=== PATIENT | female | born 1960 | race Native Hawaiian/Other Pacific Islander ===

== ENCOUNTER 2017-03-19 15:53 | Emergency (ER) | payer OTHER ==
[~2017-03-19] VITALS: Ht 160 cm; Wt 63.5 kg
--- NOTE | 2017-03-19 16:15 | NUR ---
PT IS SEEN AND EXAMINED BY MD. CHIEF C/O SHARP ABDOMENAL PAIN THATS RADIATING TO LOWER BACK. AWAKE, ALERT AND ORIENTEDX3.
[2017-03-19] MEDS ORDERED: ONDANSETRON 4 MG/2 ML VIAL IV ONE (16:45)
[2017-03-19] MEDS ORDERED: MORPHINE SULFATE 2 MG/1 ML DISP.SYRIN IV ONE (16:45)
[2017-03-19] MEDS ORDERED: IV NORMAL SALINE 1000 ML BAG IV ONE (16:45)
[2017-03-19 16:56] LABS: *BILIRUBIN,URIN NEGATIVE (NEGATIVE); *BLOOD, URINE NEGATIVE (NEGATIVE); *COLOR,URINE YELLOW (YELLOW); *KETONES,URINE NEGATIVE (NEGATIVE); *PROTEIN,URINE NEGATIVE (NEGATIVE); *UROBILINOGEN,URINE 0.2 E.U./dl (NORMAL); LEUKOCYTE ESTERASE ,URINE NEGATIVE (NEGATIVE); NITRITE, URINE NEGATIVE (NEGATIVE); UGLUCOSE NEGATIVE (NEGATIVE)
[2017-03-19 17:09] LABS: *CLARITY,URINE SLIGHTLY HAZY (CLEAR)
[2017-03-19 17:10] LABS: RBC,URINE 0-3 /HPF (0-3); SQUAMOUS EPITHELIAL CELL,UR MODERATE /HPF (NONE SEEN); WBC,URINE 0-3 /HPF (0-3)
[2017-03-19 17:13] LABS: BASOPHILS % (AUTO) 0.4 % (0.0-2.0); EOSINOPHILS # (AUTO) 0.4 K/uL (0.0-0.7); EOSINOPHILS % (AUTO) 4.2 % (0.0-7.0); HEMATOCRIT 42.9 % (31.2-41.9); HEMOGLOBIN 14.1 g/dL (10.9-14.3); LYMPHOCYTES # (AUTO) 3.6 K/uL (20.0-40.0); LYMPHOCYTES % (AUTO) 37.5 % (20.5-51.5); MEAN CORPUSCULAR HEMOGLOBIN 28.2 uug (24.7-32.8); MEAN CORPUSCULAR HGB CONC 33 g/dL (32.3-35.6); MEAN CORPUSCULAR VOLUME 85.7 fL (75.5-95.3); MONOCYTES # (AUTO) 0.5 K/uL (2.0-10.0); MONOCYTES % (AUTO) 4.9 % (0.0-11.0); NEUTROPHILS # (AUTO) 5.1 K/uL (1.8-8.9); PLATELET COUNT (AUTO) 169 K/uL (179-408); WHITE BLOOD COUNT (AUTO) 9.6 K/uL (3.8-11.8)
[2017-03-19 17:21] LABS: CREATININE 0.8 mg/dL (0.6-1.3)
[2017-03-19 17:28] LABS: BILIRUBIN,DIRECT 0.1 mg/dL (0.0-0.2); BILIRUBIN,TOTAL 0.4 mg/dL (0.2-1.0); TOTAL PROTEIN, SERUM 7.6 g/dL (6.4-8.2)
--- NOTE | 2017-03-19 17:28 | NUR ---
IV LINE ACCESS G22 INSERTED ON THE RIGHT HAND AND NS 1000L STARTED TO INFUSE ORDERED.
--- NOTE | 2017-03-19 17:40 | NUR ---
CT SCAN ABDOMEN IS DONE.
--- NOTE | 2017-03-19 17:41 | NUR ---
MORPHINE 4MG SLOW IVP GIVEN FOR C/O ABDOMENAL PAIN LEVEL 8/10.
--- NOTE | 2017-03-19 17:42 | NUR ---
FOLLOWED BY ZOFRAN 4MG SLOW IVP TO PREVENT FROM FEELING NAUSEOUS.
[2017-03-19] MEDS ORDERED: MORPHINE SULFATE 4 MG/1 ML DISP.SYRIN ONE (17:51)
[2017-03-19] MEDS ORDERED: ONDANSETRON 4 MG/2 ML VIAL ONE (17:51)
[2017-03-19] MEDS ORDERED: ESTRADIOL PATCH TD (18:21)
[2017-03-19] MEDS ORDERED: DIAZ5TAB PO (18:21)
[2017-03-19] MEDS ORDERED: HYDR-3326 PO (18:21)
--- NOTE | 2017-03-19 18:35 | NUR ---
MD TALKED TO PT REGARDING RESULTS OF TESTS WITH GOOD UNDERSTANDING. DISCHARGE INSTRUCTION GIVEN TO PT, AND RESULT OF US. CONDITION IS STABLE.
--- NOTE | 2017-03-19 19:00 | NUR ---
PT IS DISCHARGED HOME ACCOMPANIED BY HER FRIEND. CONDITION IS STABLE.
[2017-03-19 19:04] VITALS: BP 119/75
== END 2017-03-19 19:06 | disposition home or self-care (01) ==
LOC: ER 15:56
DX: N83.201 Unspecified ovarian cyst, right side (principal); D25.1 Intramural leiomyoma of uterus; I10 Essential (primary) hypertension
CPT/HCPCS: 36415; 74176; 76856; 80048; 80076; 81001; 83690; 85025; 85730; 96361; 96374; 96375; 99285; A4663; J2270; J2405; J7030